=== PATIENT | male | born 1930 | race Caucasian/White ===

== ENCOUNTER → 2017-11-11 | Outpatient (REF) ==
[~2017-11-11] MED LIST: ACETAMINOPHEN W1 TA6 PO; ASPI325T6 PO; ASPIR-LOW81 MG PO; ATIVAN 0.50.5 MG/TAB PO; DEPAKENE250 MG PO; DESYREL 50MG50 MG PO; FOLIC ACID 11 MG/TA1 PO; GLUCOPHAGE500 MG/TAB PO; HYTRIN 2MG CAPSU2 MG PO; LEVOTHYROXINE0.05 M1 PO; LEVOXYL0.075 MG PO; LISINOPRIL10 MG PO; LODINE 300300 MG/CAP PO; MACROBID 1100 MG/CAP PO; MASON NATURAL2000 IU PO; MELAT3MGTAB PO; METFORMIN PO; NEURONTIN400 MG/CAP PO; NORCO 325 MG-101 TAB PO; NORCO 325 MG-7.1 TAB PO; RAZADYNE4 MG PO; RAZADYNE8 MG PO; SIMVASTATIN10 MG PO; SYNTHROID0.05 MG/TA PO; TEMAZEPAM PO; TERAZOSIN HCL PO; TYLENOL 325MG325 MG PO; TYLENOL EXTRA500 M1 PO; ZESTRIL 10MG10 MG PO; ZOCOR 10MG10 MG PO; ZYLOPRIM 100MG100 MG PO; ZYPREXA2.5 MG PO
[2017-11-11 10:48] LABS: BASO % 0.1 % (0.0-2.0); EOS # 0.2 (0.0-0.7); EOS % 1.8 % (0-4.0); GRAN # 6.8 (1.4-6.5); HEMOGLOBIN 11.9 g/dl (13.5-18.0); LYMPH % 20.1 % (20.0-51.0); MEAN CELL VOLUME 98 fl (80.0-100.0); MEAN CORPUSCULAR HEMOGLOBIN 32 pg (27.0-31.0); MEAN CORPUSCULAR HGB CONC 33 g/dl (33.0-37.0); MONO # 0.9 (0.1-0.6); MONO % 8.7 % (1.7-9.3); PLATELET COUNT 186 K/mm3 (130-400); RED BLOOD COUNT 3.67 M/mm3 (4.20-5.60); REDCELL DISTRIBUTION WIDTH-CV 14.1 % (11.5-14.5)
[2017-11-11 10:50] LABS: HEMATOCRIT 36.1 % (42.0-52.0)
[2017-11-11 10:53] LABS: HYALINE CAST >12 /lpf; MUCOUS Present /lpf; PH 5 (5-8); SQUAMOUS EPITHELIAL 0-2 /hpf; URINE APPEARANCE Hazy; URINE BACTERIA Rare /hpf; URINE BILIRUBIN Negative (NEGATIVE); URINE BLOOD Negative (NEGATIVE); URINE COLOR Yellow; URINE GLUCOSE Negative (NEGATIVE); URINE KETONE Negative (NEGATIVE); URINE LEUKOCYTE ESTERASE Trace (NEGATIVE); URINE NITRATE Negative (NEGATIVE); URINE PROTEIN(semi-quant) 1+ (NEGATIVE); URINE RBC 0-2 /hpf
[2017-11-11 11:03] LABS: ALBUMIN 4.2 gm/dL (3.5-5.0); BILIRUBIN,TOTAL 0.6 mg/dL (0.0-1.0); CALCIUM 9.3 mg/dL (8.4-10.2); CREATININE, serum 1.47 mg/dL (0.66-1.25); POTASSIUM 4.4 mmol/L (3.4-5.0); TOTAL PROTEIN 7.3 gm/dL (6.4-8.2)
[2017-11-11 11:08] LABS: VALPROIC ACID (DEPAKENE) 33.2 ug/mL (50.0-100.0)
[2017-11-11 11:36] LABS: THYROID STIMULATING HORMONE 6.73 uIU/mL (0.465-4.680)
[2017-11-11 13:56] LABS: COLLECTION METHOD CLEAN CATCH
== END ==
LOC: ZLAB.STJ 10:39
PROVIDERS: Family Medicine
DX: Z51.81 Encounter for therapeutic drug level monitoring (principal); R79.89 Other specified abnormal findings of blood chemistry; R73.09 Other abnormal glucose; R94.6 Abnormal results of thyroid function studies; R82.90 Unspecified abnormal findings in urine

== ENCOUNTER 2017-11-12 09:39 | Emergency (ER) | payer MEDICARE ==
[~2017-11-12] VITALS: Ht 185.4 cm; Wt 109.1 kg
[~2017-11-12 09:39] MED LIST changes: -ATIVAN 0.50.5 MG/TAB PO; -DEPAKENE250 MG PO; -DESYREL 50MG50 MG PO; -FOLIC ACID 11 MG/TA1 PO; -LEVOXYL0.075 MG PO; -MACROBID 1100 MG/CAP PO; -MASON NATURAL2000 IU PO; -MELAT3MGTAB PO; -NEURONTIN400 MG/CAP PO; -NORCO 325 MG-101 TAB PO; -TYLENOL 325MG325 MG PO; -ZYLOPRIM 100MG100 MG PO; -ZYPREXA2.5 MG PO
[2017-11-12 09:43] VITALS: BP 139/74; PULSE 78; TEMP 97.6
[2017-11-12 10:04] LABS: BASO % 0.3 % (0.0-2.0); EOS # 0.1 (0.0-0.7); EOS % 1.9 % (0-4.0); GRAN # 4.8 (1.4-6.5); GRAN % 69.8 % (42.2-75.2); HEMATOCRIT 32.9 % (42.0-52.0); HEMOGLOBIN 10.8 g/dl (13.5-18.0); LYMPH # 1.3 (1.2-3.4); LYMPH % 18.1 % (20.0-51.0); MEAN CELL VOLUME 99 fl (80.0-100.0); MEAN CORPUSCULAR HEMOGLOBIN 32 pg (27.0-31.0); MEAN CORPUSCULAR HGB CONC 33 g/dl (33.0-37.0); MEAN PLATELET VOLUME 9.1 fl (7.4-10.4); MONO # 0.7 (0.1-0.6); MONO % 9.6 % (1.7-9.3); PLATELET COUNT 170 K/mm3 (130-400); RED BLOOD COUNT 3.33 M/mm3 (4.20-5.60); REDCELL DISTRIBUTION WIDTH-CV 13.9 % (11.5-14.5)
[2017-11-12 10:27] LABS: ALANINE AMINOTRANSFERASE 25 U/L (21-72); ALBUMIN 3.8 gm/dL (3.5-5.0); ALKALINE PHOSPHATASE 74 U/L (50-136); ANION GAP 11 mmol/L (7-16); AST,SGOT 41 U/L (15-37); BILIRUBIN,TOTAL 0.6 mg/dL (0.0-1.0); BLOOD UREA NITROGEN 21 mg/dL (9-20); CARBON DIOXIDE 25 mmol/L (22-30); CHLORIDE 102 mmol/L (98-107); CREATININE, serum 1.42 mg/dL (0.66-1.25); GLUCOSE 127 mg/dL (74-106); POTASSIUM 4.6 mmol/L (3.4-5.0); SODIUM 138 mmol/L (137-145); TOTAL PROTEIN 6.8 gm/dL (6.4-8.2)
[2017-11-12] MEDS ORDERED: ZYPREXA2.5 MG PO (10:28)
[2017-11-12 10:29] LABS: ALCOHOL(ethanol),MEDICAL < 10 mg/dL; SALICYLATE < 1.0 mg/dL
[2017-11-12] MEDS ORDERED: MACROBID 1100 MG/CAP PO (10:29)
[2017-11-12] MEDS ORDERED: DEPAKENE250 MG PO (10:30)
[2017-11-12] MEDS ORDERED: RAZADYNE8 MG PO ×2 (10:31→15:00)
[2017-11-12] MEDS ORDERED: NEURONTIN400 MG/CAP PO ×2 (10:31→15:00)
[2017-11-12] MEDS ORDERED: MELAT3MGTAB PO (10:32)
[2017-11-12] MEDS ORDERED: GLUCOPHAGE500 MG/TAB PO (10:32)
[2017-11-12] MEDS ORDERED: DESYREL 50MG50 MG PO (10:33)
[2017-11-12] MEDS ORDERED: LEVOXYL0.075 MG PO (10:34)
[2017-11-12] MEDS ORDERED: NORCO 325 MG-101 TAB PO (10:35)
[2017-11-12] MEDS ORDERED: TYLENOL 325MG325 MG PO (10:35)
[2017-11-12] MEDS ORDERED: ATIVAN 0.50.5 MG/TAB PO (10:36)
[2017-11-12 12:25] LABS: TRICYCLIC ANTIDEPRESS URINE NEGATIVE
[2017-11-12] MEDS ORDERED: ZYLOPRIM 100MG100 MG PO (14:59)
[2017-11-12] MEDS ORDERED: MASON NATURAL2000 IU PO (14:59)
[2017-11-12] MEDS ORDERED: ZESTRIL 10MG10 MG PO (15:01)
[2017-11-12] MEDS ORDERED: FOLIC ACID 11 MG/TA1 PO (15:01)
[2017-11-13 07:13] LABS: COLLECTION METHOD CLEAN CATCH
[2017-11-13 07:18] LABS: MUCOUS Present /lpf; PH 5 (5-8); SQUAMOUS EPITHELIAL None Seen /hpf; URINE APPEARANCE Clear; URINE BACTERIA None Seen /hpf; URINE BILIRUBIN Negative (NEGATIVE); URINE BLOOD Negative (NEGATIVE); URINE COLOR Yellow; URINE GLUCOSE Negative (NEGATIVE); URINE KETONE Trace (NEGATIVE); URINE LEUKOCYTE ESTERASE Negative (NEGATIVE); URINE NITRATE Negative (NEGATIVE); URINE PROTEIN(semi-quant) Negative (NEGATIVE); URINE RBC None Seen /hpf; URINE UROBILINOGEN Negative (NEGATIVE)
== END 2017-11-12 19:20 ==
LOC: COL.ER 09:39
PROVIDERS: Family Medicine
DX: F32.9 Major depressive disorder, single episode, unspecified (principal); F03.91 Unspecified dementia, unspecified severity, with behavioral disturbance; E11.9 Type 2 diabetes mellitus without complications; Z79.84 Long term (current) use of oral hypoglycemic drugs